=== PATIENT | female | born 2000 | race Two or more races ===

== ENCOUNTER 2018-06-05 13:44 | Outpatient (CLI) | payer OTHER | END 2018-06-05 17:15 | disposition home or self-care (01) | LOC: OBT 13:44 → L-D 13:44 → OBT 17:15 | DX: O36.8130 Decreased fetal movements, third trimester, not applicable or unspecified (principal); Z3A.28 28 weeks gestation of pregnancy | CPT/HCPCS: 76818 ==

== ENCOUNTER 2018-08-11 18:00 | Inpatient (IN) | payer OTHER ==
[2018-08-11] MEDS ORDERED: METHYLERGONOVINE 0.2 MG INJ IM ×2 (18:30→20:00)
[2018-08-11] MEDS ORDERED: OXYTOCIN 30 UNITS/LR 500 ML IV ×3 (18:30→20:00)
[2018-08-11] MEDS ORDERED: LACTATED RINGER'S 1,000 ML IV* (18:30)
[2018-08-11] MEDS ORDERED: IBUPROFEN 600 MG TAB PO ×2 (18:30→20:00)
[2018-08-11] MEDS ORDERED: BUTORPHANOL 2 MG INJ IV ×2 (18:30→20:00)
[2018-08-11] MEDS ORDERED: MISOPROSTOL 200 MCG TAB PR ×2 (18:30→20:00)
[2018-08-11] MEDS ORDERED: CARBOPROST 250 MCG INJ IM ×2 (18:30→20:00)
[2018-08-11 18:53] LABS: ADD MAN DIFF? NO
[2018-08-11 18:55] LABS: WHITE BLOOD COUNT 9.6 10^3/ul (4.8-10.8)
[2018-08-11 18:56] LABS: BASOPHILS % 0.4 % (0.0-2.0); EOSINOPHILS # 0.1 10^3/ul (0.0-0.5); EOSINOPHILS % 0.7 % (0.0-7.0); HEMATOCRIT 31.1 % (37.0-47.0); HEMOGLOBIN 10.8 g/dl (12.0-16.0); LYMPHOCYTES # 2.1 10^3/ul (0.8-2.9); LYMPHOCYTES % 21.8 % (18.0-55.0); MEAN CORPUSCULAR HEMOGLOBIN 28.1 pg (29.0-33.0); MEAN CORPUSCULAR HGB CONC 34.7 g/dl (32.0-37.0); MEAN PLATELET VOLUME 10.9 fl (7.4-10.4); MONOCYTE # 0.6 10^3/ul (0.3-0.9); MONOCYTES % 6.6 % (0.0-13.0); NEUTROPHIL # 6.7 10^3/ul (1.6-7.5); NEUTROPHILS % 69.8 % (30.0-74.0); PLATELET COUNT 173 10^3/UL (140-415); RED BLOOD COUNT 3.84 10^6/ul (4.20-5.40)
[2018-08-11] MEDS ORDERED: LIDOCAINE 1% (MPF) 30 ML INJ INJ ×2 (19:00→20:00)
[2018-08-11 19:16] LABS: INR 0.91; PROTIME 12.3 Sec (11.9-14.9)
[2018-08-11 19:17] LABS: PARTIAL THROMBOPLASTIN TIME 25.3 Sec (23.0-35.0)
[2018-08-11] MEDS: LACTATED RINGER'S 1,000 ML IV* (19:42)
[2018-08-11 19:46] LABS: HEPATITIS B SURFACE ANTIGEN NEGATIVE (NEGATIVE)
[2018-08-11] MEDS ORDERED: ACETAMINOPHEN/CODEINE #3 TAB PO (20:00)
[2018-08-11] MEDS ORDERED: MINERAL OIL LIGHT 10 ML VIAL TOP (20:00)
[2018-08-11 20:06] LABS: ALANINE AMINOTRANSFERASE 9 IU/L (13-69); ALBUMIN 3.8 g/dl (3.3-4.9); ALBUMIN/GLOBULIN RATIO 1.26; ALKALINE PHOSPHATASE 128 IU/L (42-121); ANION GAP 9 (5-13); ASPARTATE AMINO TRANSFERASE 26 IU/L (15-46); BILIRUBIN,INDIRECT 0.4 mg/dl (0-1.1); BILIRUBIN,TOTAL 0.4 mg/dl (0.2-1.3); BLOOD UREA NITROGEN 10 mg/dl (7-20); CALCIUM 9.3 mg/dl (8.4-10.2); CARBON DIOXIDE 21 mmol/L (21-31); CHLORIDE 106 mmol/L (97-110); CREATININE 0.64 mg/dl (0.44-1.00); Estimated GFR > 60 mL/min (>60); GLUCOSE 99 mg/dl (70-220); POTASSIUM 3.9 mmol/L (3.5-5.1); SODIUM 136 mmol/L (135-144); TOTAL PROTEIN 6.8 g/dl (6.1-8.1); URIC ACID 5.2 mg/dl (3.1-7.9)
[2018-08-11 21:09] LABS: ADD UMIC NO; UR ASCORBIC ACID 20 mg/dL (NEGATIVE); UR BILIRUBIN (Dip) NEGATIVE (NEGATIVE); UR BLOOD (Dip) NEGATIVE (NEGATIVE); UR CLARITY CLEAR (CLEAR); UR COLOR YELLOW (YELLOW); UR GLUCOSE (Dip) NEGATIVE (NEGATIVE); UR KETONES (Dip) NEGATIVE (NEGATIVE); UR LEUKOCYTE ESTERASE (Dip) NEGATIVE Leu/ul (NEGATIVE); UR NITRITE (Dip) NEGATIVE (NEGATIVE); UR SPECIFIC GRAVITY (Dip) 1.013 (1.003-1.030); UR TOTAL PROTEIN (Dip) NEGATIVE (NEGATIVE); UR UROBILINOGEN (Dip) NEGATIVE (NEGATIVE)
[2018-08-12] MEDS: LACTATED RINGER'S 1,000 ML IV* ×4 (02:43→21:48)
[2018-08-12] MEDS: OXYTOCIN 30 UNITS/LR 500 ML IV (09:02)
[2018-08-12] MEDS ORDERED: DIPHENHYDRAMINE 50 MG INJ IV (13:00)
[2018-08-12] MEDS ORDERED: NALOXONE (0.4 MG/ML) INJ IV (13:00)
[2018-08-12] MEDS: FENTAnyl 2MCG/ML-ROPIV 0.2% 100 ML BAG EPI ×2 (15:46→21:48)
[2018-08-12 15:53] LABS: RAPID PLASMA REAGIN NONREACTIVE (NR)
[2018-08-12] MEDS: ONDANSETRON 4 MG INJ IV (21:30)
[2018-08-13] MEDS: AMPICILLIN 2 GM/NS (PMX) 100 ML IVPB (01:09)
[2018-08-13] MEDS: AMPICILLIN 1 GM/NS (PMX) 50 ML IVPB ×6 (05:05→22:42)
[2018-08-13] MEDS: FENTAnyl 2MCG/ML-ROPIV 0.2% 100 ML BAG EPI ×3 (05:06→20:19)
[2018-08-13] MEDS: LACTATED RINGER'S 1,000 ML IV* ×2 (08:54→18:13)
[2018-08-13] MEDS: OXYTOCIN 30 UNITS/LR 500 ML IV (08:55)
[2018-08-13] MEDS ORDERED: TERBUTALINE 1 ML (18:25)
[2018-08-13] MEDS: AZITHROMYCIN 500MG/NS (PMX) 250 ML IVPB (21:02)
[2018-08-13] MEDS ORDERED: ONDANSETRON 4 MG INJ (22:04)
[2018-08-13] MEDS: ONDANSETRON 4 MG INJ IV (22:24)
[2018-08-14] MEDS: AMPICILLIN 1 GM/NS (PMX) 50 ML IVPB ×3 (01:54→09:00)
[2018-08-14] MEDS: FENTAnyl 2MCG/ML-ROPIV 0.2% 100 ML BAG EPI ×2 (02:49→07:26)
[2018-08-14] MEDS: OXYTOCIN 30 UNITS/LR 500 ML IV ×6 (03:04→22:18)
[2018-08-14] MEDS: LACTATED RINGER'S 1,000 ML IV* (04:30)
[2018-08-14] MEDS ORDERED: BUPIVACAINE 0.75%/DEXT (SPINAL) 2 ML INJ (07:00)
[2018-08-14] MEDS ORDERED: CEFAZOLIN 2 GM/50 ML (PMX) 50 ML IVPB (09:03)
[2018-08-14] MEDS ORDERED: CITRIC ACID/NA CITRATE 30 ML CUP (09:09)
[2018-08-14] MEDS: CITRIC ACID/NA CITRATE 30 ML CUP PO (09:14)
[2018-08-14] MEDS: ONDANSETRON 4 MG INJ IV ×2 (09:14→14:48)
[2018-08-14] MEDS ORDERED: FENTAnyl 50 MCG/ML VIAL (09:33)
[2018-08-14] MEDS ORDERED: METOCLOPRAMIDE 10 MG INJ (09:33)
[2018-08-14] MEDS ORDERED: PHENYLephrine (100 MCG/ML) 5ML SYG (09:33)
[2018-08-14] MEDS ORDERED: OXYTOCIN 10 UNIT INJ (09:33)
[2018-08-14] MEDS ORDERED: morphine SULFATE/PF (10 MG/10 ML) INJ (09:33)
[2018-08-14] MEDS ORDERED: DIPHENHYDRAMINE 50 MG INJ (10:13)
[2018-08-14] MEDS ORDERED: EPHEDrine SULFATE 50 MG/5 ML SYG IV (10:30)
[2018-08-14] MEDS ORDERED: NALOXONE (0.4 MG/ML) INJ IV (10:30)
[2018-08-14] MEDS ORDERED: NALBUPHINE HCL (10 MG/1 ML) INJ IV (10:30)
[2018-08-14] MEDS ORDERED: MEPERIDINE 25 MG INJ IV (10:30)
[2018-08-14] MEDS ORDERED: TRIMETHOBENZAMIDE 100 MG/ML VIAL IM ×2 (10:30)
[2018-08-14] MEDS ORDERED: DIPHENHYDRAMINE 50 MG INJ IV ×2 (10:30)
[2018-08-14] MEDS ORDERED: hydrALAzine 20 MG INJ IV (10:30)
[2018-08-14] MEDS ORDERED: ALBUTEROL 0.083% (NEB) 2.5 MG/3 ML AMP HHN (10:30)
[2018-08-14] MEDS ORDERED: ONDANSETRON 4 MG INJ IV (10:30)
[2018-08-14] MEDS ORDERED: LABETALOL HCL 20MG INJ IV (10:30)
[2018-08-14] MEDS ORDERED: morphine 2 MG INJ IV ×2 (10:30)
[2018-08-14] MEDS ORDERED: HYDROmorphONE 1 MG/5 ML IV SYRINGE IV ×3 (10:30)
[2018-08-14] MEDS ORDERED: OXYCODONE/ACETAMINOPHEN (5/325) TAB PO ×2 (10:30)
[2018-08-14] MEDS ORDERED: FENTAnyl 50 MCG/ML VIAL IV ×3 (10:30)
[2018-08-14] MEDS ORDERED: IPRATROPIUM (NEB) 0.5 MG/2.5 ML AMP HHN (10:30)
[2018-08-14] MEDS: CEFAZOLIN 2 GM/50 ML (PMX) 50 ML IVPB (11:33)
[2018-08-14] MEDS ORDERED: MISOPROSTOL 200 MCG TAB PR (14:30)
[2018-08-14] MEDS ORDERED: HYDROCODONE/APAP (5/325) TAB PO ×2 (14:30)
[2018-08-14] MEDS ORDERED: METHYLERGONOVINE 0.2 MG INJ IM (14:30)
[2018-08-14] MEDS ORDERED: OXYTOCIN 30 UNITS/LR 500 ML IV (14:30)
[2018-08-14] MEDS ORDERED: CARBOPROST 250 MCG INJ IM (14:30)
[2018-08-14] MEDS: CEFAZOLIN 1 GM/50 ML (PMX) 50 ML IVPB (17:56)
[2018-08-14] MEDS: SENNA/DOCUSATE NA (8.6MG/50MG) TAB PO (20:29)
[2018-08-14] MEDS: LANOLIN 7 GM TUBE TOP (20:29)
[2018-08-15] MEDS: LACTATED RINGER'S 1,000 ML IV ×2 (00:15→09:03)
[2018-08-15] MEDS: OXYTOCIN 30 UNITS/LR 500 ML IV ×2 (02:18→06:18)
[2018-08-15] MEDS: KETOROLAC 30 MG INJ IV (05:20)
[2018-08-15 06:26] LABS: ADD MAN DIFF? NO
[2018-08-15 06:30] LABS: WHITE BLOOD COUNT 12.6 10^3/ul (4.8-10.8)
[2018-08-15 06:30] LABS: BASOPHILS % 0.2 % (0.0-2.0); EOSINOPHILS % 0.1 % (0.0-7.0); HEMATOCRIT 26.9 % (37.0-47.0); HEMOGLOBIN 9.4 g/dl (12.0-16.0); LYMPHOCYTES # 1.6 10^3/ul (0.8-2.9); LYMPHOCYTES % 12.9 % (18.0-55.0); MEAN CORPUSCULAR HEMOGLOBIN 28.6 pg (29.0-33.0); MEAN CORPUSCULAR HGB CONC 34.9 g/dl (32.0-37.0); MEAN CORPUSCULAR VOLUME 81.8 fl (72.0-104.0); MEAN PLATELET VOLUME 10.7 fl (7.4-10.4); MONOCYTE # 0.9 10^3/ul (0.3-0.9); MONOCYTES % 6.8 % (0.0-13.0); NEUTROPHILS % 79.4 % (30.0-74.0); RED BLOOD COUNT 3.29 10^6/ul (4.20-5.40); RED CELL DISTRIBUTION WIDTH 13.8 % (11.5-14.5)
[2018-08-15 06:45] LABS: PLATELET COUNT 117 10^3/UL (140-415); POSITIVE DIFF @See below
[2018-08-15] MEDS: SENNA/DOCUSATE NA (8.6MG/50MG) TAB PO ×2 (10:23→22:14)
[2018-08-15] MEDS: OXYCODONE/ACETAMINOPHEN (5/325) TAB PO ×2 (12:03→16:45)
[2018-08-15 18:07] LABS: RHOGAM PROFILE 1 1
[2018-08-15] MEDS: IBUPROFEN 600 MG TAB PO ×2 (18:21→23:57)
[2018-08-16] MEDS: IBUPROFEN 600 MG TAB PO ×2 (06:00→12:28)
[2018-08-16] MEDS: SENNA/DOCUSATE NA (8.6MG/50MG) TAB PO (09:26)
[2018-08-17] MEDS ORDERED: DIPHTH/TET/ACEL PERTUSS (ADULT) 0.5 ML VIAL IM* (09:00)
== END 2018-08-16 16:17 | disposition home or self-care (01) | DRG 788 ==
LOC: OBT 18:00 → L-D 18:02 → OBT 18:20 → PP1 08-14 13:29 → L-D 18:20
PROC: 10D00Z1 Extraction of Products of Conception, Low, Open Approach (ICD-10-PCS; principal; 2018-08-14 09:00)
DX: O62.0 Primary inadequate contractions (principal); O66.40 Failed trial of labor, unspecified; N90.89 Other specified noninflammatory disorders of vulva and perineum; Z3A.38 38 weeks gestation of pregnancy; Z37.0 Single live birth
CPT/HCPCS: 62319; 76815; 76818; 80053; 81003; 84560; 85025; 85610; 85730; 86592; 86850; 86870; 86885; 86900; 86901; 87340; 99464